=== PATIENT | male | born 1955 | race Caucasian/White ===

== ENCOUNTER 2017-10-13 16:30 | Emergency (ER) | payer MEDICAID ==
[2017-10-13 17:43] LABS: BASOPHILS 0.2 % (0-2); EOSINOPHILS 0.1 % (0-7); HEMOGLOBIN 17.3 g/dL (13.5-17.5); IMMATURE GRANULOCYTES 0.3 % (0-5); LYMPHOCYTES 13.5 % (15-50); MCH 36.7 pg (26.0-34.0); MCHC 36.8 g/dL (31.0-37.0); MCV 99.6 fL (80.0-100.0); MEAN PLATELET VOLUME 9.9 fL (7.4-10.4); MONOCYTES 8.5 % (2-11); NEUTROPHILS 77.4 % (40-80); PLATELET COUNT 271 10x3/uL (130-400); RBC 4.72 10x6/uL (4.20-6.10); WBC 11.3 10x3/uL (4.8-10.8)
[2017-10-13 18:03] LABS: ALBUMIN 3.8 g/dL (3.4-5.0); ALKALINE PHOSPHATASE 110 U/L (46-116); ALT (SGPT) 81 U/L (10-68); BILIRUBIN - TOTAL 1.43 mg/dL (0.2-1.3); CALC OSMOLALITY 277 mosm/kg (275-300); CALCIUM 9.9 mg/dL (8.5-10.1); CARBON DIOXIDE 29.4 mmol/L (21.0-32.0); CHLORIDE - SERUM 95 mmol/L (98-107); CREATININE - SERUM 1.2 mg/dL (0.6-1.3); GLUCOSE 121 mg/dL (74-106); POTASSIUM - SERUM 3.1 mmol/L (3.5-5.1); SODIUM 139 mmol/L (136-145); UREA NITROGEN 11 mg/dL (7-18); eGFR NON AFRICAN AMERICAN 65 mL/min (90-120)
[2017-10-13 18:16] LABS: AMYLASE - SERUM 115 U/L (25-115); CKMB 1.7 U/L (0.0-3.6); CREATINE KINASE 38 UL (21-232); LIPASE 248 U/L (73-393); THYROID STIMULATING HORMONE 1.99 uIU/mL (0.36-3.74)
[2017-10-13 18:19] LABS: TROPONIN-I < 0.017 ng/mL (0.000-0.060)
== END 2017-10-13 19:36 | disposition home or self-care (01) ==
LOC: D.ER 16:30
PROVIDERS: Family Medicine
DX: R41.82 Altered mental status, unspecified (principal); R53.1 Weakness; I10 Essential (primary) hypertension; Z91.19 Patient's noncompliance with other medical treatment and regimen; F17.200 Nicotine dependence, unspecified, uncomplicated